=== PATIENT | male | born 1935 | race Caucasian/White ===

== ENCOUNTER 2021-03-31 22:30 | Inpatient (IN) ==
[2021-03-31] MEDS ORDERED: 0.9 % Sodium Chloride 1,000 ML IVC ONE (22:44)
[2021-03-31 23:44] LABS: Hematocrit 21.8 % (37.5-50.1); Hemoglobin 6.6 g/dL (12.9-16.9); Mean Corpuscular HGB Conc 30.3 g/dL (31.6-35.5); Mean Corpuscular Hemoglobin 29.5 pg (28.0-33.3); Mean Corpuscular Volume 97.3 fL (83.0-100.0); Mean Platelet Volume 10.9 fL (9.4-12.4); Nucleated Red Blood Cells 0.3 /100 WBC (0); Platelet Count 163 K/mcL (140-400); Red Blood Count 2.24 M/mcL (4.19-5.50); Red Cell Distribution Width 17.4 % (11.5-14.5); White Blood Count 14.3 K/mcL (4.3-11.1)
[2021-04-01 00:06] LABS: Alanine Aminotransferase 8 Units/L (7-52); Albumin 3.1 g/dL (3.5-5.7); Albumin/Globulin Ratio 1.6 (1.1-2.2); Alkaline Phosphatase 48 Units/L (34-104); Aspartate Amino Transferase 10 Units/L (13-39); BUN/Creatinine Ratio 52 (6-26); Bilirubin,Total 0.4 mg/dL (0.3-1.0); Blood Urea Nitrogen 48 mg/dL (8-23); Carbon Dioxide 20 mEq/L (23-29); Chloride 113 mEq/L (98-107); Globulin 1.9 g/dL (2.4-3.5); Glucose 133 mg/dL (70-105); Lymphocytes # 0.9 K/mcL (0.6-4.6); Monocytes # 0.6 K/mcL (0.0-1.3); Neutrophils # 12.9 K/mcL (1.6-8.9); Osmolality,Calculated 305 (280-300); Potassium 4.6 mEq/L (3.5-5.1); Sodium 140 mEq/L (136-145); Troponin I < 0.03 ng/mL (< 0.04); eGFR For African Americans > 60 (> 60); eGFR For Non-African Americans > 60 (> 60)
[2021-04-01 00:07] LABS: Anisocytosis 1+ (Not Present); Platelet Estimate Normal (Normal)
[2021-04-01 00:10] LABS: Activated Partial Thrombo Time 42.3 Seconds (26.0-36.0)
[2021-04-01 00:15] LABS: INR 4.5; Prothrombin Time 50.1 Seconds (9.4-12.1)
[2021-04-01] MEDS ORDERED: Isovue-370 500 ML BOTTLE IVP ONE (00:16)
[2021-04-01 01:34] LABS: Influenza A PCR Negative (Negative); Influenza B PCR Negative (Negative); Resp. Syncytial Virus PCR Negative (Negative)
[2021-04-01 01:39] LABS: SARS-CoV-2 by PCR (In House) Negative (Negative)
[2021-04-01] MEDS ORDERED: Pantoprazole 40 MG VIAL IVP ONE (02:02)
[2021-04-01] MEDS ORDERED: 0.9 % Sodium Chloride 250 ML ONE ×3 (02:09→19:57)
[2021-04-01] MEDS ORDERED: Melatonin 3 MG TABLET PO PRN (02:20)
[2021-04-01] MEDS ORDERED: Naloxone 0.4 MG/ML INJ IVP PRN (02:20)
[2021-04-01] MEDS: Pantoprazole 40 MG in 0.9 % Sodium Chloride Mini Bag 100 ML IVC SCH ×4 (04:08→22:53)
[2021-04-01] MEDS ORDERED: 0.9 % Sodium Chloride 500 ML IVC ONE (04:11)
[2021-04-01 07:49] LABS: BUN/Creatinine Ratio 51 (6-26); Blood Urea Nitrogen 45 mg/dL (8-23); Calcium 7.7 mg/dL (8.6-10.3); Carbon Dioxide 21 mEq/L (23-29); Chloride 115 mEq/L (98-107); Glucose 112 mg/dL (70-105); Osmolality,Calculated 302 (280-300); Potassium 4.5 mEq/L (3.5-5.1); Sodium 140 mEq/L (136-145); eGFR For African Americans > 60 (> 60); eGFR For Non-African Americans > 60 (> 60)
[2021-04-01 07:55] LABS: Hematocrit 21.9 % (37.5-50.1); Hemoglobin 6.6 g/dL (12.9-16.9); Mean Corpuscular HGB Conc 30.1 g/dL (31.6-35.5); Mean Corpuscular Hemoglobin 29.7 pg (28.0-33.3); Mean Corpuscular Volume 98.6 fL (83.0-100.0); Mean Platelet Volume 11.1 fL (9.4-12.4); Platelet Count 150 K/mcL (140-400); Red Blood Count 2.22 M/mcL (4.19-5.50); White Blood Count 17.5 K/mcL (4.3-11.1)
[2021-04-01 08:04] LABS: INR 2.6; Prothrombin Time 29.1 Seconds (9.4-12.1)
[2021-04-01 16:47] LABS: Hematocrit 21.1 % (37.5-50.1); Hemoglobin 6.4 g/dL (12.9-16.9); Mean Corpuscular HGB Conc 30.3 g/dL (31.6-35.5); Mean Corpuscular Hemoglobin 29.5 pg (28.0-33.3); Mean Corpuscular Volume 97.2 fL (83.0-100.0); Mean Platelet Volume 10.8 fL (9.4-12.4); Platelet Count 142 K/mcL (140-400); Red Blood Count 2.17 M/mcL (4.19-5.50); Red Cell Distribution Width 16.9 % (11.5-14.5); White Blood Count 20.1 K/mcL (4.3-11.1)
[2021-04-01] MEDS ORDERED: NON-FORMULARY MEDICATION 1 EACH EACH (Omega-3/Dha/Epa/Fish Oil [Cvs Fish Oil 1,000 Mg Soft PO SCH (21:00)
[2021-04-02 01:58] LABS: Hematocrit 22.8 % (37.5-50.1); Hemoglobin 7.2 g/dL (12.9-16.9); Mean Corpuscular HGB Conc 31.6 g/dL (31.6-35.5); Mean Corpuscular Hemoglobin 30.3 pg (28.0-33.3); Mean Corpuscular Volume 95.8 fL (83.0-100.0); Mean Platelet Volume 10.6 fL (9.4-12.4); Platelet Count 143 K/mcL (140-400); Red Blood Count 2.38 M/mcL (4.19-5.50); Red Cell Distribution Width 17.2 % (11.5-14.5); White Blood Count 21.2 K/mcL (4.3-11.1)
[2021-04-02 02:05] LABS: INR 1.5; Prothrombin Time 16.2 Seconds (9.4-12.1)
[2021-04-02 02:15] LABS: BUN/Creatinine Ratio 35 (6-26); Blood Urea Nitrogen 34 mg/dL (8-23); Carbon Dioxide 21 mEq/L (23-29); Chloride 116 mEq/L (98-107); Glucose 94 mg/dL (70-105); Osmolality,Calculated 301 (280-300); Potassium 3.9 mEq/L (3.5-5.1); Sodium 142 mEq/L (136-145); eGFR For African Americans > 60 (> 60); eGFR For Non-African Americans > 60 (> 60)
[2021-04-02] MEDS: Pantoprazole 40 MG in 0.9 % Sodium Chloride Mini Bag 100 ML IVC SCH ×6 (03:57→23:39)
[2021-04-02] MEDS: Cholecalciferol (D-3) 1,000 UNIT (25MCG) TABLET PO SCH (08:46)
[2021-04-02] MEDS: Vitamin B Complex/Vit C/Vit E 1 EACH TABLET PO SCH (08:46)
[2021-04-02 09:20] LABS: Hematocrit 22.7 % (37.5-50.1); Hemoglobin 7.1 g/dL (12.9-16.9)
[2021-04-02] MEDS ORDERED: 0.9 % Sodium Chloride 500 ML ONE (13:24)
[2021-04-02 18:42] LABS: Hematocrit 20.7 % (37.5-50.1); Hemoglobin 6.4 g/dL (12.9-16.9)
[2021-04-02] MEDS ORDERED: 0.9 % Sodium Chloride 250 ML ONE (20:16)
[2021-04-03 02:23] LABS: Hematocrit 24.3 % (37.5-50.1)
[2021-04-03] MEDS: Pantoprazole 40 MG in 0.9 % Sodium Chloride Mini Bag 100 ML IVC SCH ×4 (04:35→19:11)
[2021-04-03 04:58] LABS: Hemoglobin 7.9 g/dL (12.9-16.9); Mean Corpuscular HGB Conc 32.9 g/dL (31.6-35.5); Mean Corpuscular Hemoglobin 30.7 pg (28.0-33.3); Mean Corpuscular Volume 93.4 fL (83.0-100.0); Platelet Count 122 K/mcL (140-400); Red Blood Count 2.57 M/mcL (4.19-5.50); Red Cell Distribution Width 17.2 % (11.5-14.5); White Blood Count 16.6 K/mcL (4.3-11.1)
[2021-04-03 05:06] LABS: INR 1.4; Prothrombin Time 15.3 Seconds (9.4-12.1)
[2021-04-03 05:18] LABS: BUN/Creatinine Ratio 25 (6-26); Blood Urea Nitrogen 24 mg/dL (8-23); Carbon Dioxide 23 mEq/L (23-29); Chloride 114 mEq/L (98-107); Glucose 98 mg/dL (70-105); Osmolality,Calculated 296 (280-300); Potassium 3.8 mEq/L (3.5-5.1); Sodium 141 mEq/L (136-145); eGFR For African Americans > 60 (> 60); eGFR For Non-African Americans > 60 (> 60)
[2021-04-03] MEDS: Cholecalciferol (D-3) 1,000 UNIT (25MCG) TABLET PO SCH (08:51)
[2021-04-03] MEDS: Vitamin B Complex/Vit C/Vit E 1 EACH TABLET PO SCH (08:51)
[2021-04-03 12:25] LABS: Hematocrit 26.1 % (37.5-50.1); Hemoglobin 8.4 g/dL (12.9-16.9)
[2021-04-03 18:10] LABS: Hematocrit 25.3 % (37.5-50.1); Hemoglobin 8.2 g/dL (12.9-16.9)
[2021-04-04] MEDS: Pantoprazole 40 MG in 0.9 % Sodium Chloride Mini Bag 100 ML IVC SCH ×4 (00:01→17:25)
[2021-04-04 05:00] LABS: Hematocrit 25.8 % (37.5-50.1); Hemoglobin 8.2 g/dL (12.9-16.9); Mean Corpuscular HGB Conc 31.8 g/dL (31.6-35.5); Mean Corpuscular Hemoglobin 30.5 pg (28.0-33.3); Mean Corpuscular Volume 95.9 fL (83.0-100.0); Mean Platelet Volume 10.4 fL (9.4-12.4); Platelet Count 144 K/mcL (140-400); Red Blood Count 2.69 M/mcL (4.19-5.50); Red Cell Distribution Width 16.8 % (11.5-14.5); White Blood Count 13.9 K/mcL (4.3-11.1)
[2021-04-04 05:17] LABS: BUN/Creatinine Ratio 18 (6-26); Blood Urea Nitrogen 17 mg/dL (8-23); Calcium 8.4 mg/dL (8.6-10.3); Carbon Dioxide 26 mEq/L (23-29); Chloride 112 mEq/L (98-107); Glucose 92 mg/dL (70-105); Osmolality,Calculated 295 (280-300); Potassium 3.7 mEq/L (3.5-5.1); Sodium 142 mEq/L (136-145); eGFR For African Americans > 60 (> 60); eGFR For Non-African Americans > 60 (> 60)
[2021-04-04 05:19] LABS: INR 1.3; Prothrombin Time 14.4 Seconds (9.4-12.1)
[2021-04-04] MEDS ORDERED: *HR* Propofol 200 MG/20 ML VIAL IVP ONE ×2 (13:56→14:09)
[2021-04-04] MEDS ORDERED: Lidocaine -MPF 2% 5 ML VIAL ONE (13:56)
[2021-04-04] MEDS: Vitamin B Complex/Vit C/Vit E 1 EACH TABLET PO SCH (18:29)
[2021-04-04] MEDS: Cholecalciferol (D-3) 1,000 UNIT (25MCG) TABLET PO SCH (18:30)
[2021-04-04 21:25] LABS: Hematocrit 27.3 % (37.5-50.1); Hemoglobin 8.5 g/dL (12.9-16.9)
[2021-04-05 01:43] VITALS: PULSE 70
[2021-04-05 04:17] LABS: Hematocrit 24.9 % (37.5-50.1); Hemoglobin 7.8 g/dL (12.9-16.9); Mean Corpuscular HGB Conc 31.3 g/dL (31.6-35.5); Mean Corpuscular Hemoglobin 29.8 pg (28.0-33.3); Mean Platelet Volume 10.5 fL (9.4-12.4); Platelet Count 143 K/mcL (140-400); Red Blood Count 2.62 M/mcL (4.19-5.50); Red Cell Distribution Width 15.8 % (11.5-14.5); White Blood Count 18.6 K/mcL (4.3-11.1)
[2021-04-05 04:32] LABS: BUN/Creatinine Ratio 16 (6-26); Blood Urea Nitrogen 17 mg/dL (8-23); Calcium 8.3 mg/dL (8.6-10.3); Carbon Dioxide 24 mEq/L (23-29); Chloride 109 mEq/L (98-107); Glucose 99 mg/dL (70-105); Osmolality,Calculated 288 (280-300); Potassium 3.8 mEq/L (3.5-5.1); Sodium 138 mEq/L (136-145); eGFR For African Americans > 60 (> 60); eGFR For Non-African Americans > 60 (> 60)
[2021-04-05 04:36] LABS: INR 1.3; Prothrombin Time 14.5 Seconds (9.4-12.1)
[2021-04-05 06:50] VITALS: TEMP 98.2; O2SAT 96
[2021-04-05] MEDS ORDERED: Metoprolol XL (24 HR) Succ 50 MG TAB.ER.24H PO SCH (09:00)
[2021-04-05] MEDS: Cholecalciferol (D-3) 1,000 UNIT (25MCG) TABLET PO SCH (09:34)
[2021-04-05] MEDS: Vitamin B Complex/Vit C/Vit E 1 EACH TABLET PO SCH (09:35)
[2021-04-05 11:37] VITALS: BP 115/71
[2021-04-05 11:51] LABS: Hematocrit 29.4 % (37.5-50.1); Hemoglobin 9.2 g/dL (12.9-16.9)
== END 2021-04-05 12:43 | disposition home or self-care (01) | DRG 378 ==
LOC: EMEROOARM 22:30 → 3ANU 04-01 02:44 → SUATTDRO 04-01 02:44 → 2NNU 04-01 03:01
PROVIDERS: ADMIT Internal Medicine; ATTEND Family Medicine
PROC: ENDOEBX (2021-04-04 13:00)

== ENCOUNTER 2021-04-16 16:45 | Observation (INO) ==
[2021-04-16 17:44] LABS: Basophils # 0.1 K/mcL (0.0-0.2); Eosinophils % 0.2 %; Hematocrit 30.3 % (37.5-50.1); Hemoglobin 9.4 g/dL (12.9-16.9); Immature Granulocytes % 2.5 % (0-4); Immature Platelets 5.1 % (1.1-6.1); Lymphocytes # 0.4 K/mcL (0.6-4.6); Lymphocytes % 3.5 %; Mean Corpuscular Hemoglobin 27.5 pg (28.0-33.3); Mean Corpuscular Volume 88.6 fL (83.0-100.0); Mean Platelet Volume 10.5 fL (9.4-12.4); Monocytes # 0.9 K/mcL (0.0-1.3); Neutrophils # 9.1 K/mcL (1.6-8.9); Platelet Count 102 K/mcL (140-400); Red Blood Count 3.42 M/mcL (4.19-5.50); Red Cell Distribution Width 15.5 % (11.5-14.5); Segmented Neutrophils % 84.8 %; White Blood Count 10.8 K/mcL (4.3-11.1)
[2021-04-16 17:57] LABS: INR 1.5; Prothrombin Time 16.9 Seconds (9.4-12.1)
[2021-04-16 18:00] LABS: Activated Partial Thrombo Time 29.3 Seconds (26.0-36.0)
[2021-04-16 18:01] LABS: Influenza A PCR Negative (Negative); Influenza B PCR Negative (Negative); Resp. Syncytial Virus PCR Negative (Negative)
[2021-04-16 18:02] LABS: SARS-CoV-2 by PCR (In House) Negative (Negative)
[2021-04-16 18:05] LABS: Alanine Aminotransferase 8 Units/L (7-52); Albumin 3.7 g/dL (3.5-5.7); Albumin/Globulin Ratio 1.4 (1.1-2.2); Alkaline Phosphatase 63 Units/L (34-104); Aspartate Amino Transferase 12 Units/L (13-39); BUN/Creatinine Ratio 15 (6-26); Bilirubin,Total 0.7 mg/dL (0.3-1.0); Blood Urea Nitrogen 17 mg/dL (8-23); Calcium 8.8 mg/dL (8.6-10.3); Carbon Dioxide 21 mEq/L (23-29); Chloride 105 mEq/L (98-107); Globulin 2.6 g/dL (2.4-3.5); Glucose 115 mg/dL (70-105); Magnesium 1.7 mg/dL (1.6-2.6); Osmolality,Calculated 280 (280-300); Potassium 4.1 mEq/L (3.5-5.1); Sodium 134 mEq/L (136-145); Total Protein 6.3 g/dL (6.4-8.9); Troponin I < 0.03 ng/mL (< 0.04); eGFR For African Americans > 60 (> 60); eGFR For Non-African Americans > 60 (> 60)
[2021-04-16 18:18] LABS: Bilirubin,Urine Negative (Negative); Blood,Urine Large (Negative); Clarity,Urine Clear (Clear); Color,Urine Yellow (Yellow); Glucose,Urine (UA) Normal (Normal); Ketones,Urine Negative (Negative); Leukocyte Esterase,Urine Negative (Negative); Mucus,Urine Few per lpf (None-Few); Nitrite,Urine Negative (Negative); Protein,Urine 30 mg/dL (Neg-Trace); RBC,Urine TNTC per hpf (0-3); Specific Gravity,Urine 1.022 (1.010-1.025); Squamous Epithelial Cell,Urine Few per hpf (None-Few); Urobilinogen,Urine Normal (Normal); WBC,Urine 0-3 per hpf (0-3)
[2021-04-16] MEDS ORDERED: cefTRIAXone 1,000 MG in 0.9 % Sodium Chloride Mini Bag 100 ML IVPB ONE (18:27)
[2021-04-16] MEDS ORDERED: Ondansetron 4 MG/2 ML VIAL IVP PRN (19:50)
[2021-04-16] MEDS ORDERED: Naloxone 0.4 MG/ML INJ IVP PRN (19:50)
[2021-04-16] MEDS: Azithromycin 500 MG in 0.9 % Sodium Chloride 250 ML IVPB SCH (21:51)
[2021-04-16] MEDS: Acetaminophen 325 MG TABLET PO PRN (23:01)
[2021-04-17 01:08] LABS: Mean Platelet Volume 10.6 fL (9.4-12.4)
[2021-04-17 01:10] LABS: Hematocrit 27.2 % (37.5-50.1); Hemoglobin 8.5 g/dL (12.9-16.9); Immature Platelets 6.2 % (1.1-6.1); Mean Corpuscular HGB Conc 31.3 g/dL (31.6-35.5); Mean Corpuscular Hemoglobin 27.6 pg (28.0-33.3); Mean Corpuscular Volume 88.3 fL (83.0-100.0); Red Blood Count 3.08 M/mcL (4.19-5.50); Red Cell Distribution Width 15.5 % (11.5-14.5); White Blood Count 10.5 K/mcL (4.3-11.1)
[2021-04-17 01:27] LABS: BUN/Creatinine Ratio 16 (6-26); Blood Urea Nitrogen 17 mg/dL (8-23); Calcium 8.4 mg/dL (8.6-10.3); Carbon Dioxide 23 mEq/L (23-29); Chloride 105 mEq/L (98-107); Glucose 110 mg/dL (70-105); Osmolality,Calculated 278 (280-300); Potassium 3.8 mEq/L (3.5-5.1); Sodium 133 mEq/L (136-145); eGFR For African Americans > 60 (> 60); eGFR For Non-African Americans > 60 (> 60)
[2021-04-17] MEDS ORDERED: Perflutren Lipid Microsphere 1.3 ML in 0.9 % Sodium Chloride 8.7 ML IVP PRN (10:12)
[2021-04-17] MEDS: Acetaminophen 325 MG TABLET PO PRN (10:14)
[2021-04-17] MEDS ORDERED: Isovue-370 500 ML BOTTLE IVP ONE (12:32)
[2021-04-17] MEDS: cefTRIAXone 1,000 MG in 0.9 % Sodium Chloride Mini Bag 100 ML IVPB SCH (17:06)
[2021-04-17] MEDS: Azithromycin 500 MG in 0.9 % Sodium Chloride 250 ML IVPB SCH (21:35)
[2021-04-18 06:08] LABS: Hematocrit 28.2 % (37.5-50.1); Hemoglobin 8.8 g/dL (12.9-16.9); Mean Corpuscular HGB Conc 31.2 g/dL (31.6-35.5); Mean Corpuscular Hemoglobin 27.4 pg (28.0-33.3); Mean Corpuscular Volume 87.9 fL (83.0-100.0); Mean Platelet Volume 11.6 fL (9.4-12.4); Red Blood Count 3.21 M/mcL (4.19-5.50); Red Cell Distribution Width 15.5 % (11.5-14.5); White Blood Count 7.5 K/mcL (4.3-11.1)
[2021-04-18 06:23] LABS: BUN/Creatinine Ratio 17 (6-26); Blood Urea Nitrogen 18 mg/dL (8-23); Calcium 8.3 mg/dL (8.6-10.3); Carbon Dioxide 24 mEq/L (23-29); Chloride 102 mEq/L (98-107); Glucose 97 mg/dL (70-105); Osmolality,Calculated 276 (280-300); Potassium 3.8 mEq/L (3.5-5.1); Sodium 132 mEq/L (136-145); eGFR For African Americans > 60 (> 60); eGFR For Non-African Americans > 60 (> 60)
[2021-04-18] MEDS: Metoprolol XL (24 HR) Succ 25 MG TAB.ER.24H PO SCH (09:40)
[2021-04-18] MEDS: cefTRIAXone 1,000 MG in 0.9 % Sodium Chloride Mini Bag 100 ML IVPB SCH (17:38)
[2021-04-18] MEDS: Azithromycin 500 MG in 0.9 % Sodium Chloride 250 ML IVPB SCH (19:39)
[2021-04-19] MEDS ORDERED: Ipratropium/Albuterol Neb 3 ML IH PRN (02:15)
[2021-04-19 07:19] VITALS: BP 102/60; PULSE 70; TEMP 97.8; O2SAT 93
[2021-04-19 07:59] LABS: Hemoglobin 8.7 g/dL (12.9-16.9); Mean Corpuscular Volume 86.9 fL (83.0-100.0); Red Cell Distribution Width 15.4 % (11.5-14.5)
[2021-04-19 08:01] LABS: Hematocrit 27.2 % (37.5-50.1); Immature Platelets 10.5 % (1.1-6.1); Mean Corpuscular Hemoglobin 27.8 pg (28.0-33.3); Mean Platelet Volume 11.7 fL (9.4-12.4); Red Blood Count 3.13 M/mcL (4.19-5.50); White Blood Count 6.2 K/mcL (4.3-11.1)
[2021-04-19 08:20] LABS: BUN/Creatinine Ratio 18 (6-26); Blood Urea Nitrogen 18 mg/dL (8-23); Calcium 8.4 mg/dL (8.6-10.3); Carbon Dioxide 25 mEq/L (23-29); Chloride 103 mEq/L (98-107); Glucose 92 mg/dL (70-105); Osmolality,Calculated 280 (280-300); Potassium 3.8 mEq/L (3.5-5.1); Sodium 134 mEq/L (136-145); eGFR For African Americans > 60 (> 60); eGFR For Non-African Americans > 60 (> 60)
[2021-04-19] MEDS: Metoprolol XL (24 HR) Succ 25 MG TAB.ER.24H PO SCH (08:55)
== END 2021-04-19 11:47 | disposition home health service (06) ==
LOC: EMEROOARM 16:45 → 3BNU 16:45 → SUATTDRO 20:03 → 3BNU 20:40
PROVIDERS: ADMIT Internal Medicine; ATTEND Registered Nurse

== ENCOUNTER 2021-12-20 06:17 | Inpatient (IN) ==
[2021-12-20] MEDS ORDERED: 0.9 % Sodium Chloride 1,000 ML ONE ×2 (06:36→06:56)
[2021-12-20] MEDS ORDERED: Protamine Sulfate 50 MG/5 ML VIAL IVP ONE (06:55)
[2021-12-20] MEDS ORDERED: *HR* Heparin 10,000 UNIT/10 ML VIAL ONE (06:55)
[2021-12-20] MEDS ORDERED: Iopamidol - 370 200 ML INFUS..BTL ONE (06:56)
[2021-12-20] MEDS ORDERED: Heparin 1,000 UNITS/500 mL 2,000 ML ONE (06:56)
[2021-12-20 07:25] LABS: INR 2.6; Prothrombin Time 28.8 Seconds (9.4-12.1)
[2021-12-20] MEDS ORDERED: *HR* Propofol 200 MG/20 ML VIAL IVP ONE (14:34)
[2021-12-20] MEDS ORDERED: Lidocaine -MPF 2% 5 ML VIAL SQ ONE ×2 (14:34)
[2021-12-20] MEDS ORDERED: Ondansetron 4 MG/2 ML VIAL IVP ONE (14:34)
[2021-12-20] MEDS ORDERED: *HR* Succinylcholine 200 MG/10 ML VIAL IVP ONE (14:34)
[2021-12-20] MEDS ORDERED: Warfarin perPT PO PRN (18:00)
[2021-12-20] MEDS ORDERED: NON-FORMULARY MEDICATION 1 EACH EACH (Omega-3/Dha/Epa/Fish Oil [Cvs Fish Oil 1,000 Mg Soft PO SCH (21:00)
[2021-12-21 03:26] VITALS: O2SAT 94
[2021-12-21 03:56] VITALS: PULSE 70
[2021-12-21 04:58] LABS: Basophils % 0.1 %; Red Cell Distribution Width 13.4 % (11.5-14.5)
[2021-12-21 05:00] LABS: Hematocrit 36.7 % (37.5-50.1); Hemoglobin 12.4 g/dL (12.9-16.9); Immature Granulocytes % 1.1 % (0-4); Immature Platelets 10.9 % (1.1-6.1); Lymphocytes # 0.7 K/mcL (0.6-4.6); Lymphocytes % 7.7 %; Mean Corpuscular HGB Conc 33.8 g/dL (31.6-35.5); Mean Corpuscular Hemoglobin 29.7 pg (28.0-33.3); Mean Platelet Volume 11.8 fL (9.4-12.4); Monocytes # 0.3 K/mcL (0.0-1.3); Monocytes % 3.1 %; Neutrophils # 7.9 K/mcL (1.6-8.9); Red Blood Count 4.17 M/mcL (4.19-5.50)
[2021-12-21 05:02] LABS: Platelet Count 73 K/mcL (140-400)
[2021-12-21 05:06] LABS: INR 3.3; Prothrombin Time 36.3 Seconds (9.4-12.1)
[2021-12-21 05:16] LABS: Calcium 9.5 mg/dL (8.6-10.3); Potassium 4.2 mEq/L (3.5-5.1)
[2021-12-21] MEDS ORDERED: Furosemide 20 MG TABLET PO SCH (09:00)
[2021-12-21] MEDS ORDERED: lisinopriL 5 MG TABLET PO SCH (09:00)
[2021-12-21] MEDS ORDERED: Aspirin Enteric Coated 81 MG Tablet PO SCH (09:00)
[2021-12-21] MEDS ORDERED: Metoprolol XL (24 HR) Succ 50 MG TAB.ER.24H PO SCH (09:00)
[2021-12-21] MEDS ORDERED: Vitamin B Complex/Vit C/Vit E 1 EACH TABLET PO SCH (09:00)
[2021-12-21] MEDS ORDERED: Cholecalciferol (D-3) 1,000 UNIT (25MCG) TABLET PO SCH (09:00)
[2021-12-21 11:51] VITALS: BP 105/54; TEMP 97.8
== END 2021-12-21 14:35 | disposition home or self-care (01) | DRG 274 ==
LOC: INVDIALAB 06:17 → 2NNU 11:22
PROVIDERS: ADMIT Internal Medicine Clinical Cardiac Electrophysiology; ATTEND Internal Medicine Clinical Cardiac Electrophysiology